=== PATIENT | female | born 1955 | race Caucasian/White ===

== ENCOUNTER → 2018-07-29 14:04 | Outpatient (CLI) | payer OTHER, MEDICAID, SELFPAY ==
--- NOTE | 2018-07-29 | DI.MRI.S_ITS ---
PROCEDURE: MR CERVICAL SPINE WO/W CON INDICATIONS: Radiculopathy, cervicothoracic region TECHNIQUE: Noncontrast sagittal T1 spin echo and T2 fast spin echo, sagittal STIR, foraminal oblique sagittal T2 fast spin echo, axial gradient echo or T2 fast spin echo through the cervical spine. After the administration of contrast, axial and sagittal T1 spin echo with fat saturation through the cervical spine. COMPARISON: None. FINDINGS: Image quality: Excellent. Alignment and curvature: Reversal of the normal cervical lordosis. Grade 1 retrolisthesis of C5 on C6. Marrow: Mild degenerative spurring and endplate degenerative signal change. No suspicious marrow enhancement. Spinal cord: Visualized spinal cord has normal size and signal. No cerebellar tonsillar herniation. No abnormal intramedullary enhancement. Paraspinous soft tissues: No paravertebral masses or suspicious enhancement. C2-3: Normal appearance. C3-4: Normal appearance. C4-5: Bilateral uncovertebral arthropathy and posterior intervening disc osteophyte complex, and mild bilateral facet disease. No definite canal stenosis. Minimal bilateral foraminal narrowing. C5-6: Bilateral uncovertebral arthropathy and posterior intervening disc osteophyte complex, and bilateral facet arthropathy. Mild to moderate canal narrowing with effacement of the anterior and posterior thecal sac. Severe bilateral foraminal narrowing. C6-7: Bilateral uncovertebral arthropathy and posterior intervening disc osteophyte complex, and bilateral facet arthropathy. Mild canal narrowing. Moderate right foraminal stenosis. Mild left foraminal narrowing C7-T1: Normal appearance. IMPRESSION: Multilevel cervical degeneration most pronounced at C5-C6 and C6-C7. Severe bilateral C5-C6 foraminal stenoses. Moderate right C6-C7 foraminal narrowing. Reversal of the normal cervical lordosis. No abnormal enhancement. Dictated by: Dieudonne Pichardo M.D. on 07/29/2018 at 16:17 Approved by: Dieudonne Pichardo M.D. on 07/29/2018 at 16:26
--- NOTE | 2018-07-29 | DI.MRI.S_ITS ---
PROCEDURE: MR THORACIC SPINE WO/W CON INDICATIONS: Radiculopathy, cervicothoracic region TECHNIQUE: Noncontrast sagittal T1 spin echo and T2 fast spin echo, sagittal STIR, axial T1 and T2 fast spin echo through the thoracic spine. After the administration of contrast, axial and sagittal T1 spin echo with fat saturation through the thoracic spine. COMPARISON: None. FINDINGS: Image quality: Excellent. Alignment and curvature: There is normal bony alignment. Marrow: Marrow is of normal overall signal. A few scattered incidental T1/T2 bright vertebral body hemangiomas. No acute vertebral body compression fractures. Spinal cord: Visualized spinal cord is of normal signal and size, without abnormal enhancement. Paraspinous soft tissues: No paravertebral masses or abnormal enhancement. Miscellaneous: Central canal and foramina appear widely patent at all scanned levels. IMPRESSION: No canal or foraminal stenosis. No abnormal enhancement. Dictated by: Dieudonne Pichardo M.D. on 07/29/2018 at 16:26 Approved by: Dieudonne Pichardo M.D. on 07/29/2018 at 16:43
== END ==
PROVIDERS: PCP Family Medicine; Referring Provider Chiropractor; Visit Provider Physician Assistant
DX: M50.123 Cervical disc disorder at C6-C7 level with radiculopathy (principal); M48.02 Spinal stenosis, cervical region
CPT/HCPCS: 72156; 72157; A9579

== ENCOUNTER → 2019-06-15 12:58 | Outpatient (CLI) | payer OTHER, MEDICAID, SELFPAY ==
--- NOTE | 2019-06-15 | DI.RAD.S_ITS ---
PROCEDURE: FL BARIUM SWALLOW W SPEECH INDICATIONS: Other dysphagia TECHNIQUE: Examination was conducted in conjunction with speech pathology per standard protocol. In the lateral projection, filming was performed of the patient swallowing. AP projection filming may also be performed with patient swallowing. COMPARISON: [facility], MR, MR CERVICAL SPINE WO/W CON, 07/29/2018, 14:41. FINDINGS: Function: The oral preparatory phase appears normal, with proper containment. The subsequent oral propulsive phase, pharyngeal phase, and esophageal phase of swallowing also appear normal with all proffered substances. No laryngotracheal penetration or aspiration. No pathologic vallecular pooling. Morphology: No cricopharyngeal bar is identified. No cervical esophageal webs. No Zenker's diverticulum. No strictures. IMPRESSION: No laryngeal penetration or aspiration. Please see speech pathologist's report for detail. Dictated by: Layla Knutson M.D. on 06/15/2019 at 18:12 Approved by: Layla Knutsno M.D. on 06/15/2019 at 18:13
--- NOTE | 2019-06-15 13:30 | ST.SWALLOW ---
Visit Care Team Role Provider Type Guero Hernandez MD Family Provider Non-Staff Primary Care Provider Specialty: Family Practice Address: 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 Rivers, ENT Reason for Referral Globus Setting Setting Outpatient Care Patient Information Identification Type Name Patient History Patient complains of chronic globus sensation which used to go away after a period of time, but now persists at all times. She endorses some intermittent vocal hoarseness. Additionally, she reports she has been unable to swallow on a few occasions, but attributes this to anxiety. Subjective Observations Patient alert, oriented and cooperative during the exam. Patient Positioning Position View Lateral Imaging Lateral View Textures Administered Trials Presented Thin Liquid via Spoon,Thin Liquid via Cup,[place] Liquid via Spoon,[place] Liquid via Cup,Honey Liquid via Spoon, Dysphagia Blenderized Textures ,Regular Textures Oral Phase Source: MBSIMP (TM) (C) Bolus Specific Scoring Grid Lip Closure No Impairment (WNL) Tongue Control During Bolus Hold No Impairment (WNL) Bolus Prep/Mastication No Impairment (WNL) Bolus Transport/Lingual Motion No Impairment (WNL) Oral Residue No Impairment (WNL) Pharyngeal Phase Source: MBSIMP (TM) (C) Bolus Specific Scoring Grid Delayed Initiation of Pharyngeal Swallow No Tongue Base Strength/Range of Motion No Impairment (WNL) Laryngeal Elevation No Impairment (WNL) Anterior Hyoid Movement No Impairment (WNL) Epiglottic Range of Motion Minimal Impairment Vallecular Residue Yes Clearance of Vallecular Residue WFL Laryngeal Vestibular Closure No Impairment (WNL) Pharyngeal Stripping Wave No Impairment (WNL) Pharyngeal Contraction No Impairment (WNL) Posterior Pharyngeal Wall Residue Yes Clearance of Posterior Pharyngeal Wall WFL Residue Upper Esophageal Sphincter Opening No Impairment (WNL) Residue in the Pyriform Sinuses Yes Clearance of Residue in the Pyriform WFL Sinuses Additional Pharyngeal Phase Observations Observed trace increasing to a collection of pharyngeal residue in the vallecula and pyriform sinuses as well as on the areypiglottic folds during consecutive cups sips which cleared with additional swallows. Hyolaryngeal elevation and excursion were within normal limits and laryngeal vestibular closure was complete with no penetration or aspiration observed during the study. A/P View Clinical Impressions Findings Functional swallow with no significant impairments observed. Recommend small bites/sips with additional swallows to clear residue. No reflux observed on this limited exam; however, patient 's symptoms may be consistent with laryngopharyngeal reflux. Follow-up with ENT is recommended. Patient Appropriate for Therapy No Recommendations Diet Liquids Order Thin Diet Order Regular Medication Recommendation As Tolerated Aspiration Precautions Recommended Precautions Upright at 90 Degrees,Small Bites/Sips,Double Swallow Treatment Plan Recommended Referrals ENT Consult Placement Recommendation After Discharge Home
== END ==
PROVIDERS: Family Provider Family Medicine; PCP Family Medicine; Visit Provider Otolaryngology
DX: R13.19 Other dysphagia (principal); R49.0 Dysphonia
CPT/HCPCS: 74230; 92611

== ENCOUNTER → 2020-01-26 11:32 | Outpatient (CLI) | payer OTHER, MEDICAID, SELFPAY ==
--- NOTE | 2020-01-26 | DI.MRI.S_ITS ---
PROCEDURE: MR CERVICAL SPINE WO CON INDICATIONS: Spinal stenosis, cervical region TECHNIQUE: Noncontrast sagittal T1 spin echo and T2 fast spin echo, sagittal STIR, foraminal oblique sagittal T2 fast spin echo, and axial gradient echo or T2 fast spin echo through the cervical spine. COMPARISON: [facility], MR, MR CERVICAL SPINE WO/W CON, 07/29/2018, 14:41. [facility], MR, C-SPINE WITHOUT CONTRAST, 08/25/2009, 9:16. FINDINGS: Image quality: Excellent. Alignment and Curvature: Trace retrolisthesis of C5 on C6, C6 on C7, trace anterolisthesis of C7 on T1, T1-T2, T2 on T3. Areas increased T1 and T2 signal within the T4 vertebral body suggestive of hemangioma. Bone Marrow: Marrow demonstrates normal overall signal. Spinal Cord: Visualized spinal cord has normal size and signal. No cerebellar tonsillar herniation. Paraspinous Soft Tissues: No paravertebral masses. Prevertebral soft tissues are normal in thickness. Discs: Moderate to severe desiccation is present throughout the cervical spine most severe at C5-6 and C6-7. C2-C3: No disc bulge, spinal stenosis or foraminal narrowing. No interval change. C3-C4: No disc bulge, spinal stenosis or foraminal narrowing. No interval change. C4-C5: Mild disc bulge without spinal stenosis. Minimal bilateral foraminal narrowing. Uncovertebral hypertrophy is present. No interval change. C5-C6: Mild disc bulge with superimposed posterior central protrusion protrusion. Moderate to severe spinal stenosis, unchanged. Moderate to severe bilateral, right greater than left foraminal narrowing with uncovertebral hypertrophy. No interval change. C6-C7: Mild disc bulge with moderate spinal stenosis. Mild/moderate bilateral foraminal narrowing, right greater than left with uncovertebral hypertrophy. C7-T1: Minimal disc bulge without spinal stenosis or foraminal narrowing. IMPRESSION: 1. Multiple disc bulges, spinal stenosis and foraminal narrowing. Overall, appearance is similar compared to prior exam. 2. Multilevel foraminal narrowing most prominent at C5-6 secondary to uncovertebral hypertrophy. Dictated by: Maribel Diego M.D. on 01/26/2020 at 13:47 Approved by: Maribel Diego M.D. on 01/26/2020 at 13:56
== END ==
PROVIDERS: Family Provider Family Medicine; PCP Family Medicine; Referring Provider Neuromusculoskeletal Medicine & OMM; Visit Provider Neuromusculoskeletal Medicine & OMM
DX: M48.02 Spinal stenosis, cervical region (principal); M50.221 Other cervical disc displacement at C4-C5 level
CPT/HCPCS: 72141

== ENCOUNTER → 2020-03-07 10:47 | Outpatient (CLI) | payer OTHER, MEDICAID, SELFPAY ==
--- NOTE | 2020-03-07 | DI.US.S_ITS ---
PROCEDURE: US PELVIC COMPLETE INDICATIONS: POSTMENOPAUSAL BLEEDING TECHNIQUE: Real-time scanning was performed of the pelvic organs, with image documentation. Additional endovaginal scanning was necessary due to incomplete visualization of the adnexal and endometrial structures by transabdominal scanning. COMPARISON: None. FINDINGS: Transabdominal scanning: Limited scanning through the kidneys shows no hydronephrosis. No pathologic free abdominal or pelvic fluid. Endovaginal scanning: Uterus: Uterus is normal in size at 6.8 x 2.3 x 4.0 cm. The endometrium measures 3.0 mm in combined thickness. Ovaries: Right ovary measures 2.3 x 2.0 x 1.2 cm and the left ovary measures 3.0 x 0.9 x 2 cm. Subcentimeter simple right ovarian cyst. IMPRESSION: No source for postmenopausal bleeding identified. Dictated by: Leonel Davis [facility] Interpreted: Carrie Espinoza MD on 03/07/2020 at 12:42 Approved by: Carrie Espinoza M.D. on 03/07/2020 at 14:16
== END ==
PROVIDERS: Family Provider Family Medicine; PCP Family Medicine; Referring Provider Family Medicine; Visit Provider Family Medicine
DX: N95.0 Postmenopausal bleeding (principal); N83.291 Other ovarian cyst, right side
CPT/HCPCS: 76830; 76856

== ENCOUNTER → 2021-01-09 10:59 | Outpatient (CLI) | payer OTHER, MEDICAID, SELFPAY | PROVIDERS: Family Provider Family Medicine; PCP Family Medicine; Referring Provider Family Medicine; Visit Provider Family Medicine | DX: N95.0 Postmenopausal bleeding (principal); Z53.8 Procedure and treatment not carried out for other reasons ==

== ENCOUNTER → 2021-10-31 09:24 | Outpatient (CLI) | payer OTHER, MEDICAID, SELFPAY ==
[2021-11-02 11:25] LABS: Candida species Negative (Negative); Gardnerella vaginalis Positive (Negative); Trichomoas vaginalis Negative (Negative)
== END ==
PROVIDERS: Family Provider Family Medicine; PCP Family Medicine; Visit Provider Physician Assistant
DX: N89.8 Other specified noninflammatory disorders of vagina (principal); R30.0 Dysuria
CPT/HCPCS: 81002; 87077; 87086; 87147; 87480; 87510; 87660

== ENCOUNTER 2023-10-28 11:15 | Outpatient (RCR) | payer MEDICARE, SELFPAY ==
--- NOTE | 2023-08-05 17:00 | PT.OIE ---
Current Diagnoses Other specified disorders of muscle (08/05/23) Cystocele, unspecified (08/05/23) Pelvic muscle wasting (08/05/23) Postmenopausal atrophic vaginitis (08/05/23) Visit Care Team Role Provider Type Colin Barroso PA-C Attending Provider Non-Staff Family Provider Primary Care Provider Referring Provider Specialty: Medical Address: [address] [place] [address], [id number] Email: Physical Therapy Initial Evaluation PT-OP-A Visit Information Start: 08/05/23 08:11 Freq: Status: Active Protocol: Document 08/05/23 11:15 AMH (Rec: 08/05/23 11:41 AMH [id number]) Out-Patient Physical Therapy Visit Information Visit Information Visit Type Initial Evaluation Visit Start Time 11:18 Visit Stop Time 12:00 Total Visit Minutes 42 Visit Number 1 Evaluation Information Evaluation Date 08/05/23 PT-OP-B Current Condition Start: 08/05/23 08:11 Freq: Status: Active Protocol: Document 08/05/23 11:15 AMH (Rec: 08/05/23 11:41 AMH [id number]) Current Condition History of Current Condition Onset Date a year at least Current Complaints unable to have intercourse or sit on hard surface History of Current Condition She feels as if she is getting a UTI after intercourse or after sitting it takes a few hours and she will start to feel irritation at the surface. She has been using estrodial on the surface to see if it helps off and on for the last year. She is also taking Ellura and this seems to be helping with avoiding UTI's. She describes her tissue being raw with intercourse, but 12 hours later she feels that she is getting a UTI. She in the last couple of weeks she has noted that she has more bowel urgency and is almost not making it to the bathroom. Only a couple of times a month will she note leakage when she sneezes. She had cervical Disc 4-5 removed and replaced November 2021 she has been in a lot of pain since her surgery. She hasn't been able to do any walking. Treatment Goals Patient/Caregiver Goals Treatment goals include improving strength of the pelvic floor for improved support of the pelvic organs and to eliminate pelvic pain following sitting and after intercourse. PT-OP-F Manual Assessment Start: 08/05/23 08:11 Freq: Status: Active Protocol: Document 08/05/23 11:15 AMH (Rec: 08/06/23 08:42 AMH [id number]) Manual Assessments Soft Tissue Assessment Soft Tissue Mobility Assessment fascial tightness around the transverse colon and diaphraghm PT-OP-I Pelvic Floor Start: 08/05/23 08:11 Freq: Status: Active Protocol: Document 08/05/23 11:15 AMH (Rec: 08/06/23 08:41 AMH [id number]) Pelvic Floor Assessment Urine Pelvic Floor Surgery No Urinary Symptoms Urge Sensation,Prolapse, Hesitancy,Pain Other Urinary Symptoms pelvic pain with description of raw tissue after intercourse and after sitting for long duration, hx of UTI's and the feeling that she is getting a UTI after intercourse Leakage Size Small Leakage Cause Cough,Sneeze Leaks Per Day 2-3 per month Nocturia 3 Pelvic Clock Pelvic Clock 12-3 Atrophy Pelvic Clock 3-6 Atrophy Pelvic Clock 6-9 Atrophy Pelvic Clock 9-12 Atrophy Pelvic Clock Other swelling noted around the urethra Prolapse Cystocele Grade 2 Contraction Ability Voluntary Contraction Weak Voluntary Relaxation Weak Manual Muscle Testing Left 2 Manual Muscle Testing Right 1 Manual Muscle Testing Anterior 1 Manual Muscle Testing Posterior 2 Muscle Endurance (Seconds) 2 PT-OP-M Strength Start: 08/05/23 08:11 Freq: Status: Active Protocol: Document 08/05/23 11:15 AMH (Rec: 08/06/23 08:41 AMH [id number]) Trunk Strength Trunk Manual Muscle Testing Testing Position Supine Flexion 2+ Poor+ Core Stabilization poor facilitation of the transverse abdominal muscles, pt tends to bulge the lower belly out with exhale PT-OP-Q Treatments Start: 08/05/23 08:11 Freq: Status: Active Protocol: Document 08/05/23 11:15 AMH (Rec: 08/05/23 17:50 AMH [id number]) Therapeutic Exercises Supine Exercises supine ball squeeze with pelvic floor contraction Reps/Minutes hold 5 min x 10 reps PT-OP-T Assessment and Plan Start: 08/05/23 08:11 Freq: Status: Active Protocol: Document 08/05/23 11:15 AMH (Rec: 08/06/23 08:11 AMH [id number]) Physical Therapy Assessment Rehab Potential Rehabilitation Potential Excellent Evaluation Complexity Number of Personal Factors/Comorbidities 0 Number of Body Systems Impaired 1-2 Clinical Presentation at Evaluation Stable Impairments Impairments Activity Tolerance,Functional Activities,Pain,Posture,Soft Tissue Mobility,Strength,Tone Other Impairments atrophic vaginitis and pain/ swelling following intercourse or sitting for too long, pt notes she has the feeling that she is getting a UTI after intercourse Goals 3 Impairment Poor endurance of the pelvic floor muscles with Dean only being able to sustain a pelvic floor contraction for 1 -2 seconds in supine Short Term Goal (STG) Dean is able to sustain a pelvic floor contraction in supine x 10 seconds STG Duration 5 weeks [employer] Goal (LTG) Dean is able to sustain a pelvic floor contraction in standing x 5 seconds LTG Duration 12 weeks 2 Impairment Pelvic floor weakness and atrophic tissue with MMT of 1/ 5 for the anterior and right lateral wall and 2/5 MMT for the posterior and left lateral wall Short Term Goal (STG) Dean is educated in pelvic floor strengthening and is given a home program to work on strengthening. STG Duration 4 weeks Skilled Nursing Goal (LTG) Dean presents with overall improvements in pelvic floor strength by one muscle grade or better for improved pelvic organ support LTG Duration 12 weeks 1 Impairment Pelvic pain and a feeling of raw tissue and swelling along with the feeling dean has a UTI following sitting for too long and after intercourse Short Term Goal (STG) Dean is educated on exercises and positional modifications she can make to decrease pelvic floor irritation STG Duration 4 weeks [employer] Goal (LTG) Dean reports a overall reduction in pelvic pain and no longer describes a feeling of raw tissue following intercourse and sitting for long duration LTG Duration 12 weeks Assessment Summary Assessment Dean is a 67 year old female who presents to PT today with atrophic vaginitis and new onset of pelvic pain type symptoms following intercourse or after sitting for too long. Dean notes she will experience a delayed onset of what feels like she is getting a UTI after intercourse or sitting and she describes the feeling of raw tissues She has been using estrodial off and on in the past year. Dean also reports a newer onset of bowel urgency and feeling as if she is not going to make it to the bathroom in time for bowel movements. Dean describes a small amount of urinary incontinence that occurs approx 2-3 times per month. She presents with nocturia and wakes approx 3 times per night to void. Dean has a past medical history of Cervical spine disc bulges and she underwent surgical repair last year. She reports her symptoms are much worse in her neck following surgery and this year has been a really hard year for her recovery sandoval. She has been in so much pain that she has not been able to enjoy her usual exercise activities and even walking increases her cervical pain. With exam today her pelvic floor tissue is atrophic and thinning, there is a grade 1-2 bladder prolapse palpated and some swelling around the urethra. Dean has poor pelvic floor strength with MMT of 1/5 for the anterior and right lateral wall and 2/5 MMT for left and posterior allen. She lacks the ability to sustain a pelvic floor contration for more than a few seconds. With abdominal testing she has poor ability to engage her transverse abdominals and there is tightness in the obliques and diaphragm. We talked today about how her inability to walk or exercise in this past year after her cervical surgery has most likely contributed to atrophy in her pelvis and core. She was advised to try water walking in the pool to decrease weight bearing and see if this is tolerable for her neck. I did start her with a adduction assist pelvic floor exercise and she tolerated this well. Dean is a good candidate for pelvic floor physical therapy and EMG biofeedback to assist with pelvic floor strengthening and endurance training. Physical Therapy Plan Frequency and Duration Frequency of Treatment 1x/Week Duration of treatment (weeks) 12 Plan of Care Start Date 08/05/23 Plan of Care End Date 10/28/23 Therapeutic Interventions Therapeutic Interventions Home Exercise Program, Neuromuscular Re-education, Patient/Caregiver Education, Self-Care/Home Management, Therapeutic Exercises Modalities Biofeedback Next Visit Focus/Plan Next Note Type Treatment Note Next Visit Plan Begin EMG biofeedback next visit for pelvic floor strengthening and endurance training.
--- NOTE | 2023-08-13 13:07 | PT.OTN ---
Current Diagnoses Other specified disorders of muscle (08/13/23) Cystocele, unspecified (08/13/23) Pelvic muscle wasting (08/13/23) Postmenopausal atrophic vaginitis (08/13/23) Physical Therapy Treatment Note PT-OP-A Visit Information Start: 08/05/23 08:11 Freq: Status: Active Protocol: Document 08/13/23 11:15 [facility] (Rec: 08/13/23 12:03 [facility] [id number]) Out-Patient Physical Therapy Visit Information Visit Information Visit Type Treatment Note Visit Start Time 11:16 Visit Stop Time 12:00 Total Visit Minutes 44 Visit Number 2 PT-OP-B Current Condition Start: 08/05/23 08:11 Freq: Status: Active Protocol: Document 08/05/23 11:15 [facility] (Rec: 08/05/23 11:41 [facility] [id number]) Current Condition History of Current Condition Onset Date a year at least Current Complaints unable to have intercourse or sit on hard surface History of Current Condition She feels as if she is getting a UTI after intercourse or after sitting it takes a few hours and she will start to feel iritation at the surface. She has been using estrodial on the surface to see if it helps off and on for the last year. She is also taking Ellura and this seems to be helping with avoiding UTI's. She describes her tissue being raw with intercourse, but 12 hours later she feels that she is getting a UTI. SHe in the last couple of weeks she has noted that she has more bowel urgency and is almost not making it to the bathroom. Only a couple of times a month will she note leakage when she sneezes. She had cervical Disc 4-5 removed and replaced November 2021 she has been in a lot of pain since her surgery. She hasn't been able to do any walking. Treatment Goals Patient/Caregiver Goals Treatment goals include improving strength of the pelvic floor for improved support of the pelvic organs and to eliminate pelvic pain following sitting and after intercourse. PT-OP-C Subjective Start: 08/05/23 08:11 Freq: Status: Active Protocol: Document 08/13/23 11:15 [facility] (Rec: 08/13/23 12:03 [facility] [id number]) OP-PT Subjective Patient Comments Patient Comments pt has a ball to use at home, she noticed a slight feeling of needing to void with her exercises but this has improved throughout the week PT-OP-F Manual Assessment Start: 08/05/23 08:11 Freq: Status: Active Protocol: Document 08/05/23 11:15 [facility] (Rec: 08/06/23 08:42 [facility] [id number]) Manual Assessments Soft Tissue Assessment Soft Tissue Mobility Assessment fascial tightness around the transverse colon and diaphraghm PT-OP-I Pelvic Floor Start: 08/05/23 08:11 Freq: Status: Active Protocol: Document 08/05/23 11:15 [facility] (Rec: 08/06/23 08:41 [facility] [id number]) Pelvic Floor Assessment Urine Pelvic Floor Surgery No Urinary Symptoms Urge Sensation,Prolapse, Hesitancy,Pain Other Urinary Symptoms pelvic pain with description of raw tissue after intercourse and after sitting for long duration, hx of UTI's and the feeling that she is getting a UTI after intercourse Leakage Size Small Leakage Cause Cough,Sneeze Leaks Per Day 2-3 per month Nocturia 3 Pelvic Clock Pelvic Clock 12-3 Atrophy Pelvic Clock 3-6 Atrophy Pelvic Clock 6-9 Atrophy Pelvic Clock 9-12 Atrophy Pelvic Clock Other swelling noted around the urethra Prolapse Cystocele Grade 2 Contraction Ability Voluntary Contraction Weak Voluntary Relaxation Weak Manual Muscle Testing Left 2 Manual Muscle Testing Right 1 Manual Muscle Testing Anterior 1 Manual Muscle Testing Posterior 2 Muscle Endurance (Seconds) 2 PT-OP-M Strength Start: 08/05/23 08:11 Freq: Status: Active Protocol: Document 08/05/23 11:15 [facility] (Rec: 08/06/23 08:41 [facility] [id number]) Trunk Strength Trunk Manual Muscle Testing Testing Position Supine Flexion 2+ Poor+ Core Stabilization poor facilitation of the transverse abdominal muscles, pt tends to bulge the lower belly out with exhale PT-OP-Q Treatments Start: 08/05/23 08:11 Freq: Status: Active Protocol: Document 08/13/23 11:15 [facility] (Rec: 08/13/23 12:03 [facility] [id number]) Therapeutic Exercises Supine Exercises diaphragmatic breathing Reps/Minutes inhale x 4 counts and exhale x 6 counts x 10 breaths Comments worked on rig cage expansion and belly breath piriformis stretch Reps/Minutes 2 reps holding 30 sec each modified squat stretch Reps/Minutes 2 reps 30 sec each supine ball squeeze with pelvic floor contraction Comments average hold 13.3 and max of 59 PT-OP-T Assessment and Plan Start: 08/05/23 08:11 Freq: Status: Active Protocol: Document 08/13/23 11:15 [facility] (Rec: 08/13/23 13:02 [facility] [id number]) Physical Therapy Assessment Goals 3 Impairment Poor endurance of the pelvic floor muscles with Dean only being able to sustain a pelvic floor contraction for 1 -2 seconds in supine Short Term Goal (STG) Dean is able to sustain a pelvic floor contraction in supine x 10 seconds STG Duration 5 weeks Temporary Office Assistant Goal (LTG) Dean is able to sustain a pelvic floor contraction in standing x 5 seconds LTG Duration 12 weeks 2 Impairment Pelvic floor weakness and atrophic tissue with MMT of 1/ 5 for the anterior and right lateral wall and 2/5 MMT for the posterior and left lateral wall Short Term Goal (STG) Dean is educated in pelvic floor strengthening and is given a home program to work on strengthening. STG Duration 4 weeks Custodial Goal (LTG) Dean presents with overall improvements in pelvic floor strength by one muscle grade or better for improved pelvic organ support LTG Duration 12 weeks 1 Impairment Pelvic pain and a feeling of raw tissue and swelling along with the feeling dean has a UTI following sitting for too long and after intercourse Short Term Goal (STG) Dean is educated on exercises and positional modifications she can make to decrease pelvic floor irritation STG Duration 4 weeks Custodial Goal (LTG) Dean reports a overall reduction in pelvic pain and no longer describes a feeling of raw tissue following intercourse and sitting for long duration LTG Duration 12 weeks Assessment Summary Assessment Dean did well with diaphragmatic breathing and adding in hip stretches today to help relax the pelvic floor . I started her on EMG biofeedback and she tolerated this well. She tends to use her gluteals and has difficulty with pelvic floor recruitment without breath hold Physical Therapy Plan Frequency and Duration Frequency of Treatment 1x/Week Duration of treatment (weeks) 12 Plan of Care Start Date 08/05/23 Plan of Care End Date 10/28/23 Therapeutic Interventions Therapeutic Interventions Home Exercise Program, Neuromuscular Re-education, Patient/Caregiver Education, Self-Care/Home Management, Therapeutic Exercises Modalities Biofeedback Next Visit Focus/Plan Next Note Type Treatment Note Next Visit Plan continue EMG biofeedback work towards pelvic floor isloation and endurance training, review diaphragmatic breathing and stretches
--- NOTE | 2023-08-19 14:08 | PT.OTN ---
Current Diagnoses Other specified disorders of muscle (08/19/23) Cystocele, unspecified (08/19/23) Pelvic muscle wasting (08/19/23) Postmenopausal atrophic vaginitis (08/19/23) Physical Therapy Treatment Note PT-OP-A Visit Information Start: 08/05/23 08:11 Freq: Status: Active Protocol: Document 08/19/23 11:19 [facility] (Rec: 08/19/23 12:07 [facility] [id number]) Out-Patient Physical Therapy Visit Information Visit Information Visit Type Treatment Note Visit Start Time 11:19 Visit Stop Time 12:00 Total Visit Minutes 42 Visit Number 3 PT-OP-B Current Condition Start: 08/05/23 08:11 Freq: Status: Active Protocol: Document 08/05/23 11:15 [facility] (Rec: 08/05/23 11:41 [facility] [id number]) Current Condition History of Current Condition Onset Date a year at least Current Complaints unable to have intercourse or sit on hard surface History of Current Condition She feels as if she is getting a UTI after intercourse or after sitting it takes a few hours and she will start to feel iritation at the surface. She has been using estrodial on the surface to see if it helps off and on for the last year. She is also taking Ellura and this seems to be helping with avoiding UTI's. She describes her tissue being raw with intercourse, but 12 hours later she feels that she is getting a UTI. SHe in the last couple of weeks she has noted that she has more bowel urgency and is almost not making it to the bathroom. Only a couple of times a month will she note leakage when she sneezes. She had cervical Disc 4-5 removed and replaced November 2021 she has been in a lot of pain since her surgery. She hasn't been able to do any walking. Treatment Goals Patient/Caregiver Goals Treatment goals include improving strength of the pelvic floor for improved support of the pelvic organs and to eliminate pelvic pain following sitting and after intercourse. PT-OP-C Subjective Start: 08/05/23 08:11 Freq: Status: Active Protocol: Document 08/19/23 11:19 [facility] (Rec: 08/19/23 12:07 [facility] [id number]) OP-PT Subjective Patient Comments Patient Comments pt reports she has been working on her breathing and has been trying to exhale, she notes she did have some irritated tissue at the urethra last week but it does seem a little better now. PT-OP-F Manual Assessment Start: 08/05/23 08:11 Freq: Status: Active Protocol: Document 08/05/23 11:15 [facility] (Rec: 08/06/23 08:42 [facility] [id number]) Manual Assessments Soft Tissue Assessment Soft Tissue Mobility Assessment fascial tightness around the transverse colon and diaphraghm PT-OP-I Pelvic Floor Start: 08/05/23 08:11 Freq: Status: Active Protocol: Document 08/05/23 11:15 [facility] (Rec: 08/06/23 08:41 [facility] [id number]) Pelvic Floor Assessment Urine Pelvic Floor Surgery No Urinary Symptoms Urge Sensation,Prolapse, Hesitancy,Pain Other Urinary Symptoms pelvic pain with description of raw tissue after intercourse and after sitting for long duration, hx of UTI's and the feeling that she is getting a UTI after intercourse Leakage Size Small Leakage Cause Cough,Sneeze Leaks Per Day 2-3 per month Nocturia 3 Pelvic Clock Pelvic Clock 12-3 Atrophy Pelvic Clock 3-6 Atrophy Pelvic Clock 6-9 Atrophy Pelvic Clock 9-12 Atrophy Pelvic Clock Other swelling noted around the urethra Prolapse Cystocele Grade 2 Contraction Ability Voluntary Contraction Weak Voluntary Relaxation Weak Manual Muscle Testing Left 2 Manual Muscle Testing Right 1 Manual Muscle Testing Anterior 1 Manual Muscle Testing Posterior 2 Muscle Endurance (Seconds) 2 PT-OP-M Strength Start: 08/05/23 08:11 Freq: Status: Active Protocol: Document 08/05/23 11:15 [facility] (Rec: 08/06/23 08:41 [facility] [id number]) Trunk Strength Trunk Manual Muscle Testing Testing Position Supine Flexion 2+ Poor+ Core Stabilization poor facilitation of the transverse abdominal muscles, pt tends to bulge the lower belly out with exhale PT-OP-Q Treatments Start: 08/05/23 08:11 Freq: Status: Active Protocol: Document 08/19/23 11:19 [facility] (Rec: 08/19/23 12:07 [facility] [id number]) Therapeutic Exercises Supine Exercises pelvic floor isolations with emg biofeedback Supine Exercise Name 12.3 average and max 28 Reps/Minutes hold x 5 sec and rest x 10 seconds Comments resting tone is at baseline diaphragmatic breathing Reps/Minutes inhale x 4 counts and exhale x 6 counts x 10 breaths Comments worked on rig cage expansion and belly breath piriformis stretch Reps/Minutes 2 reps holding 30 sec each modified squat stretch Reps/Minutes 2 reps 30 sec each supine ball squeeze with pelvic floor contraction Comments average hold 13.3 and max of 59 PT-OP-T Assessment and Plan Start: 08/05/23 08:11 Freq: Status: Active Protocol: Document 08/19/23 11:19 [facility] (Rec: 08/19/23 12:07 [facility] [id number]) Physical Therapy Assessment Rehab Potential Rehabilitation Potential Excellent Evaluation Complexity Number of Personal Factors/Comorbidities 0 Number of Body Systems Impaired 1-2 Clinical Presentation at Evaluation Stable Impairments Impairments Activity Tolerance,Functional Activities,Pain,Posture,Soft Tissue Mobility,Strength,Tone Other Impairments atrophic vaginitis and pain/ swelling following intercourse or sitting for too long, pt notes she has the feeling that she is getting a UTI after intercourse Goals 3 Impairment Poor endurance of the pelvic floor muscles with Dean only being able to sustain a pelvic floor contraction for 1 -2 seconds in supine Short Term Goal (STG) Dean is able to sustain a pelvic floor contraction in supine x 10 seconds STG Duration 5 weeks Care Home Goal (LTG) Dean is able to sustain a pelvic floor contraction in standing x 5 seconds LTG Duration 12 weeks 2 Impairment Pelvic floor weakness and atrophic tissue with MMT of 1/ 5 for the anterior and right lateral wall and 2/5 MMT for the posterior and left lateral wall Short Term Goal (STG) Dean is educated in pelvic floor strengthening and is given a home program to work on strengthening. STG Duration 4 weeks Technical Training Coordinator Goal (LTG) Dean presents with overall improvements in pelvic floor strength by one muscle grade or better for improved pelvic organ support LTG Duration 12 weeks 1 Impairment Pelvic pain and a feeling of raw tissue and swelling along with the feeling dean has a UTI following sitting for too long and after intercourse Short Term Goal (STG) Dean is educated on exercises and positional modifications she can make to decrease pelvic floor irritation STG Duration 4 weeks Technical Training Coordinator Goal (LTG) Dean reports a overall reduction in pelvic pain and no longer describes a feeling of raw tissue following intercourse and sitting for long duration LTG Duration 12 weeks Assessment Summary Assessment Dean did well with diaphragmatic breathing and adding in hip stretches today to help relax the pelvic floor . I started her on EMG biofeedback and she tolerated this well. She was able to relax to baseline on EMG biofeedback. She was also able to isolate her pelvic floor today and did just as well on her own as with the ball squeeze so I progressed her to isolations only. Physical Therapy Plan Frequency and Duration Frequency of Treatment 1x/Week Duration of treatment (weeks) 12 Plan of Care Start Date 08/05/23 Plan of Care End Date 10/28/23 Therapeutic Interventions Therapeutic Interventions Home Exercise Program, Neuromuscular Re-education, Patient/Caregiver Education, Self-Care/Home Management, Therapeutic Exercises Modalities Biofeedback Next Visit Focus/Plan Next Note Type Treatment Note Next Visit Plan begin hip ER exercises next visit and add in quick pelvic floor contractions, continue with stretches, breathing exercises and endurance training on EMG biofeedback
--- NOTE | 2023-08-26 12:35 | PT.OTN ---
Current Diagnoses Other specified disorders of muscle (08/26/23) Cystocele, unspecified (08/26/23) Pelvic muscle wasting (08/26/23) Postmenopausal atrophic vaginitis (08/26/23) Physical Therapy Treatment Note PT-OP-A Visit Information Start: 08/05/23 08:11 Freq: Status: Active Protocol: Document 08/26/23 11:27 [facility] (Rec: 08/26/23 11:55 [facility] [id number]) Out-Patient Physical Therapy Visit Information Visit Information Visit Type Treatment Note Visit Start Time 11:20 Visit Stop Time 12:00 Total Visit Minutes 40 Visit Number 4 PT-OP-B Current Condition Start: 08/05/23 08:11 Freq: Status: Active Protocol: Document 08/05/23 11:15 [facility] (Rec: 08/05/23 11:41 [facility] [id number]) Current Condition History of Current Condition Onset Date a year at least Current Complaints unable to have intercourse or sit on hard surface History of Current Condition She feels as if she is getting a UTI after intercourse or after sitting it takes a few hours and she will start to feel iritation at the surface. She has been using estrodial on the surface to see if it helps off and on for the last year. She is also taking Ellura and this seems to be helping with avoiding UTI's. She describes her tissue being raw with intercourse, but 12 hours later she feels that she is getting a UTI. SHe in the last couple of weeks she has noted that she has more bowel urgency and is almost not making it to the bathroom. Only a couple of times a month will she note leakage when she sneezes. She had cervical Disc 4-5 removed and replaced November 2021 she has been in a lot of pain since her surgery. She hasn't been able to do any walking. Treatment Goals Patient/Caregiver Goals Treatment goals include improving strength of the pelvic floor for improved support of the pelvic organs and to eliminate pelvic pain following sitting and after intercourse. PT-OP-C Subjective Start: 08/05/23 08:11 Freq: Status: Active Protocol: Document 08/26/23 11:27 [facility] (Rec: 08/26/23 11:55 [facility] [id number]) OP-PT Subjective Patient Comments Patient Comments pt notes she is using the estrogen cream every night and is using coconut oil. She is not noting the tingling tenderness as much PT-OP-F Manual Assessment Start: 08/05/23 08:11 Freq: Status: Active Protocol: Document 08/05/23 11:15 [facility] (Rec: 08/06/23 08:42 [facility] [id number]) Manual Assessments Soft Tissue Assessment Soft Tissue Mobility Assessment fascial tightness around the transverse colon and diaphraghm PT-OP-I Pelvic Floor Start: 08/05/23 08:11 Freq: Status: Active Protocol: Document 08/05/23 11:15 [facility] (Rec: 08/06/23 08:41 [facility] [id number]) Pelvic Floor Assessment Urine Pelvic Floor Surgery No Urinary Symptoms Urge Sensation,Prolapse, Hesitancy,Pain Other Urinary Symptoms pelvic pain with description of raw tissue after intercourse and after sitting for long duration, hx of UTI's and the feeling that she is getting a UTI after intercourse Leakage Size Small Leakage Cause Cough,Sneeze Leaks Per Day 2-3 per month Nocturia 3 Pelvic Clock Pelvic Clock 12-3 Atrophy Pelvic Clock 3-6 Atrophy Pelvic Clock 6-9 Atrophy Pelvic Clock 9-12 Atrophy Pelvic Clock Other swelling noted around the urethra Prolapse Cystocele Grade 2 Contraction Ability Voluntary Contraction Weak Voluntary Relaxation Weak Manual Muscle Testing Left 2 Manual Muscle Testing Right 1 Manual Muscle Testing Anterior 1 Manual Muscle Testing Posterior 2 Muscle Endurance (Seconds) 2 PT-OP-M Strength Start: 08/05/23 08:11 Freq: Status: Active Protocol: Document 08/05/23 11:15 [facility] (Rec: 08/06/23 08:41 [facility] [id number]) Trunk Strength Trunk Manual Muscle Testing Testing Position Supine Flexion 2+ Poor+ Core Stabilization poor facilitation of the transverse abdominal muscles, pt tends to bulge the lower belly out with exhale PT-OP-Q Treatments Start: 08/05/23 08:11 Freq: Status: Active Protocol: Document 08/26/23 11:27 [facility] (Rec: 08/26/23 11:55 [facility] [id number]) Therapeutic Exercises Supine Exercises pelvic floor isolations with emg biofeedback Reps/Minutes 10 sec on 10 sec off average 11.5 and max of 20.2 Comments able to relax to baseline diaphragmatic breathing Reps/Minutes inhale x 4 counts and exhale x 6 counts x 10 breaths Comments worked on rig cage expansion and belly breath Sidelying Exercises clam shells Reps/Minutes 2 x 10 reps Self-Care/Home Management Treatment Education Other Education pt was educated in dilator use and was given a size medium dilator with instructions on how to use it as well as using coconut oil for her vaginal tissues. PT-OP-T Assessment and Plan Start: 08/05/23 08:11 Freq: Status: Active Protocol: Document 08/26/23 11:27 [facility] (Rec: 08/26/23 11:55 [facility] [id number]) Physical Therapy Assessment Goals 3 Impairment Poor endurance of the pelvic floor muscles with Dean only being able to sustain a pelvic floor contraction for 1 -2 seconds in supine Short Term Goal (STG) Dean is able to sustain a pelvic floor contraction in supine x 10 seconds STG Duration 5 weeks Penitentiary Goal (LTG) Dean is able to sustain a pelvic floor contraction in standing x 5 seconds LTG Duration 12 weeks 2 Impairment Pelvic floor weakness and atrophic tissue with MMT of 1/ 5 for the anterior and right lateral wall and 2/5 MMT for the posterior and left lateral wall Short Term Goal (STG) Dean is educated in pelvic floor strengthening and is given a home program to work on strengthening. STG Duration 4 weeks Penitentiary Goal (LTG) Dean presents with overall improvements in pelvic floor strength by one muscle grade or better for improved pelvic organ support LTG Duration 12 weeks 1 Impairment Pelvic pain and a feeling of raw tissue and swelling along with the feeling dean has a UTI following sitting for too long and after intercourse Short Term Goal (STG) Dean is educated on exercises and positional modifications she can make to decrease pelvic floor irritation STG Duration 4 weeks [employer] Goal (LTG) Dean reports a overall reduction in pelvic pain and no longer describes a feeling of raw tissue following intercourse and sitting for long duration LTG Duration 12 weeks Assessment Summary Assessment Time was spent today on self care discussing the coconut oil and estrogen cream for Dean's tissue, she was also given a size medium dilator for home use as she would like to be able to be sexually active with her again. She is doing well relaxing the pelvic floor to baseline and endurance contractions are improved Physical Therapy Plan Frequency and Duration Frequency of Treatment 1x/Week Duration of treatment (weeks) 12 Plan of Care Start Date 08/05/23 Plan of Care End Date 10/28/23 Therapeutic Interventions Therapeutic Interventions Home Exercise Program, Neuromuscular Re-education, Patient/Caregiver Education, Self-Care/Home Management, Therapeutic Exercises Modalities Biofeedback Next Visit Focus/Plan Next Note Type Treatment Note Next Visit Plan review hip ER clam shells next visit and continue with pelvic floor endurance contractions as well as pelivc floor relaxation exercises
--- NOTE | 2023-10-16 13:59 | PT.OTN ---
Current Diagnoses Other specified disorders of muscle (10/16/23) Cystocele, unspecified (10/16/23) Pelvic muscle wasting (10/16/23) Postmenopausal atrophic vaginitis (10/16/23) Physical Therapy Treatment Note PT-OP-A Visit Information Start: 08/05/23 08:11 Freq: Status: Active Protocol: Document 10/16/23 11:21 [facility] (Rec: 10/16/23 12:03 [facility] [id number]) Out-Patient Physical Therapy Visit Information Visit Information Visit Type Treatment Note Visit Start Time 11:20 Visit Stop Time 12:00 Visit Number 5 PT-OP-B Current Condition Start: 08/05/23 08:11 Freq: Status: Active Protocol: Document 08/05/23 11:15 [facility] (Rec: 08/05/23 11:41 [facility] [id number]) Current Condition History of Current Condition Onset Date a year at least Current Complaints unable to have intercourse or sit on hard surface History of Current Condition She feels as if she is getting a UTI after intercourse or after sitting it takes a few hours and she will start to feel iritation at the surface. She has been using estrodial on the surface to see if it helps off and on for the last year. She is also taking Ellura and this seems to be helping with avoiding UTI's. She describes her tissue being raw with intercourse, but 12 hours later she feels that she is getting a UTI. SHe in the last couple of weeks she has noted that she has more bowel urgency and is almost not making it to the bathroom. Only a couple of times a month will she note leakage when she sneezes. She had cervical Disc 4-5 removed and replaced November 2021 she has been in a lot of pain since her surgery. She hasn't been able to do any walking. Treatment Goals Patient/Caregiver Goals Treatment goals include improving strength of the pelvic floor for improved support of the pelvic organs and to eliminate pelvic pain following sitting and after intercourse. PT-OP-C Subjective Start: 08/05/23 08:11 Freq: Status: Active Protocol: Document 10/16/23 11:21 [facility] (Rec: 10/16/23 12:03 [facility] [id number]) OP-PT Subjective Patient Comments Patient Comments pt had to cx a visit due to a bad headache and a fall and her headache is much better. She has been diagnosed with hyper parathyroid syndrome. She feels she has progressed with her execises. She still has irritation with intercourse. SHe is doing the estradial and coconut oil and her pelvic floor tissue feels better but still irritaton with intercourse. SHe has had no leakge and feels better with decreased urgency. She also hasn't been experiencing the sciatica on the left side. PT-OP-F Manual Assessment Start: 08/05/23 08:11 Freq: Status: Active Protocol: Document 08/05/23 11:15 [facility] (Rec: 08/06/23 08:42 [facility] [id number]) Manual Assessments Soft Tissue Assessment Soft Tissue Mobility Assessment fascial tightness around the transverse colon and diaphraghm PT-OP-I Pelvic Floor Start: 08/05/23 08:11 Freq: Status: Active Protocol: Document 08/05/23 11:15 [facility] (Rec: 08/06/23 08:41 [facility] [id number]) Pelvic Floor Assessment Urine Pelvic Floor Surgery No Urinary Symptoms Urge Sensation,Prolapse, Hesitancy,Pain Other Urinary Symptoms pelvic pain with description of raw tissue after intercourse and after sitting for long duration, hx of UTI's and the feeling that she is getting a UTI after intercourse Leakage Size Small Leakage Cause Cough,Sneeze Leaks Per Day 2-3 per month Nocturia 3 Pelvic Clock Pelvic Clock 12-3 Atrophy Pelvic Clock 3-6 Atrophy Pelvic Clock 6-9 Atrophy Pelvic Clock 9-12 Atrophy Pelvic Clock Other swelling noted around the urethra Prolapse Cystocele Grade 2 Contraction Ability Voluntary Contraction Weak Voluntary Relaxation Weak Manual Muscle Testing Left 2 Manual Muscle Testing Right 1 Manual Muscle Testing Anterior 1 Manual Muscle Testing Posterior 2 Muscle Endurance (Seconds) 2 PT-OP-M Strength Start: 08/05/23 08:11 Freq: Status: Active Protocol: Document 08/05/23 11:15 [facility] (Rec: 08/06/23 08:41 [facility] [id number]) Trunk Strength Trunk Manual Muscle Testing Testing Position Supine Flexion 2+ Poor+ Core Stabilization poor facilitation of the transverse abdominal muscles, pt tends to bulge the lower belly out with exhale PT-OP-Q Treatments Start: 08/05/23 08:11 Freq: Status: Active Protocol: Document 10/16/23 11:21 [facility] (Rec: 10/16/23 12:03 [facility] [id number]) Therapeutic Exercises Supine Exercises pelvic floor isolations with emg biofeedback Supine Exercise Name 11.9 and max of 19 Reps/Minutes 10 sec on 10 sec off average 11.5 and max of 20.2 piriformis stretch Supine Exercise Name pt is modifying this as pulling knee to chest wasd bothering her back Reps/Minutes 2 reps holding 30 sec each modified squat stretch Reps/Minutes 2 reps 30 sec each supine ball squeeze with pelvic floor contraction Comments average hold 13.3 and max of 59 Sidelying Exercises clam shells Reps/Minutes 2 x 10 reps Self-Care/Home Management Treatment Education Patient Education Home Exercise Program,Pain Management Other Education dilator use was reviewed and pt was educated on using ice following intercourse as she will start to get tissue irritation following. She has doretha pads at home she can freeze. PT-OP-T Assessment and Plan Start: 08/05/23 08:11 Freq: Status: Active Protocol: Document 10/16/23 11:21 [facility] (Rec: 10/16/23 12:03 [facility] [id number]) Physical Therapy Assessment Goals 2 Impairment Pelvic floor weakness and atrophic tissue with MMT of 1/ 5 for the anterior and right lateral wall and 2/5 MMT for the posterior and left lateral wall Short Term Goal (STG) Christy is educated in pelvic floor strengthening and is given a home program to work on strengthening. STG Duration 4 weeks Supervisor Joiners Goal (LTG) Christy presents with overall improvements in pelvic floor strength by one muscle grade or better for improved pelvic organ support LTG Duration 12 weeks 1 Impairment Pelvic pain and a feeling of raw tissue and swelling along with the feeling christy has a UTI following sitting for too long and after intercourse Short Term Goal (STG) Christy is educated on exercises and positional modifications she can make to decrease pelvic floor irritation STG Duration 4 weeks Supervisor Joiners Goal (LTG) Christy reports a overall reduction in pelvic pain and no longer describes a feeling of raw tissue following intercourse and sitting for long duration pt notes overall this is better with sitting LTG Duration 12 weeks Assessment Summary Assessment Christy has made progress with her pelvic floor and she is able to have intercourse without pain but has pain afterwards. I advised icing after intercourse and she will work on this to see if it helps her. She is no longer leaking and is not noting urgency Physical Therapy Plan Frequency and Duration Frequency of Treatment 1x/Week Duration of treatment (weeks) 12 Plan of Care Start Date 08/05/23 Plan of Care End Date 10/28/23 Next Visit Focus/Plan Next Note Type Treatment Note Next Visit Plan review all established ex next visit and see how pt does with icing after intercourse. This will be Christy's last PT visit
--- NOTE | 2023-10-28 12:02 | PT.OTN ---
Current Diagnoses Other specified disorders of muscle (10/28/23) Cystocele, unspecified (10/28/23) Pelvic muscle wasting (10/28/23) Postmenopausal atrophic vaginitis (10/28/23) Physical Therapy Treatment Note PT-OP-A Visit Information Start: 08/05/23 08:11 Freq: Status: Active Protocol: Document 10/28/23 11:18 [facility] (Rec: 10/28/23 12:02 [facility] [id number]) Out-Patient Physical Therapy Visit Information Visit Information Visit Type Treatment Note Visit Start Time 11:18 Visit Stop Time 12:00 Visit Number 6 PT-OP-B Current Condition Start: 08/05/23 08:11 Freq: Status: Active Protocol: Document 08/05/23 11:15 [facility] (Rec: 08/05/23 11:41 [facility] [id number]) Current Condition History of Current Condition Onset Date a year at least Current Complaints unable to have intercourse or sit on hard surface History of Current Condition She feels as if she is getting a UTI after intercourse or after sitting it takes a few hours and she will start to feel iritation at the surface. She has been using estrodial on the surface to see if it helps off and on for the last year. She is also taking Ellura and this seems to be helping with avoiding UTI's. She describes her tissue being raw with intercourse, but 12 hours later she feels that she is getting a UTI. SHe in the last couple of weeks she has noted that she has more bowel urgency and is almost not making it to the bathroom. Only a couple of times a month will she note leakage when she sneezes. She had cervical Disc 4-5 removed and replaced November 2021 she has been in a lot of pain since her surgery. She hasn't been able to do any walking. Treatment Goals Patient/Caregiver Goals Treatment goals include improving strength of the pelvic floor for improved support of the pelvic organs and to eliminate pelvic pain following sitting and after intercourse. PT-OP-C Subjective Start: 08/05/23 08:11 Freq: Status: Active Protocol: Document 10/28/23 11:18 [facility] (Rec: 10/28/23 12:02 [facility] [id number]) OP-PT Subjective Patient Comments Patient Comments Dean notes she hasn't been sleeping due to the parathyroid. She has elevated calcium in her blood that can dry out her tissue and she is wondering if that is causing some of her irritated tissue in her vaginal area PT-OP-F Manual Assessment Start: 08/05/23 08:11 Freq: Status: Active Protocol: Document 08/05/23 11:15 [facility] (Rec: 08/06/23 08:42 [facility] [id number]) Manual Assessments Soft Tissue Assessment Soft Tissue Mobility Assessment fascial tightness around the transverse colon and diaphraghm PT-OP-I Pelvic Floor Start: 08/05/23 08:11 Freq: Status: Active Protocol: Document 08/05/23 11:15 [facility] (Rec: 08/06/23 08:41 [facility] [id number]) Pelvic Floor Assessment Urine Pelvic Floor Surgery No Urinary Symptoms Urge Sensation,Prolapse, Hesitancy,Pain Other Urinary Symptoms pelvic pain with description of raw tissue after intercourse and after sitting for long duration, hx of UTI's and the feeling that she is getting a UTI after intercourse Leakage Size Small Leakage Cause Cough,Sneeze Leaks Per Day 2-3 per month Nocturia 3 Pelvic Clock Pelvic Clock 12-3 Atrophy Pelvic Clock 3-6 Atrophy Pelvic Clock 6-9 Atrophy Pelvic Clock 9-12 Atrophy Pelvic Clock Other swelling noted around the urethra Prolapse Cystocele Grade 2 Contraction Ability Voluntary Contraction Weak Voluntary Relaxation Weak Manual Muscle Testing Left 2 Manual Muscle Testing Right 1 Manual Muscle Testing Anterior 1 Manual Muscle Testing Posterior 2 Muscle Endurance (Seconds) 2 PT-OP-M Strength Start: 08/05/23 08:11 Freq: Status: Active Protocol: Document 08/05/23 11:15 [facility] (Rec: 08/06/23 08:41 [facility] [id number]) Trunk Strength Trunk Manual Muscle Testing Testing Position Supine Flexion 2+ Poor+ Core Stabilization poor facilitation of the transverse abdominal muscles, pt tends to bulge the lower belly out with exhale PT-OP-Q Treatments Start: 08/05/23 08:11 Freq: Status: Active Protocol: Document 10/28/23 11:18 [facility] (Rec: 10/28/23 12:02 [facility] [id number]) Therapeutic Exercises Supine Exercises pelvic floor quick contractions Reps/Minutes 2 sec on 2 sec off pelvic floor isolations with emg biofeedback Supine Exercise Name 11.1 and max of 23 Reps/Minutes 10 seconds on 10 seconds off piriformis stretch Supine Exercise Name pt is modifying this as pulling knee to chest wasd bothering her back Reps/Minutes 2 reps holding 30 sec each modified squat stretch Reps/Minutes 2 reps 30 sec each supine ball squeeze with pelvic floor contraction Comments average hold 13.3 and max of 59 Sidelying Exercises clam shells Reps/Minutes 2 x 10 reps Self-Care/Home Management Treatment Education Patient Education Home Exercise Program,Pain Management Other Education pt was given a size large dilator and ice following intercourse was reviewed. Her HEP was reviewed today. PT-OP-T Assessment and Plan Start: 08/05/23 08:11 Freq: Status: Active Protocol: Document 10/28/23 11:18 [facility] (Rec: 10/28/23 12:02 [facility] [id number]) Physical Therapy Assessment Goals 3 Impairment Poor endurance of the pelvic floor muscles with Dean only being able to sustain a pelvic floor contraction for 1 -2 seconds in supine Short Term Goal (STG) Dean is able to sustain a pelvic floor contraction in supine x 10 seconds GOAL MET STG Duration 5 weeks Snf Goal (LTG) Dean is able to sustain a pelvic floor contraction in standing x 5 seconds not yet met LTG Duration 12 weeks 2 Impairment Pelvic floor weakness and atrophic tissue with MMT of 1/ 5 for the anterior and right lateral wall and 2/5 MMT for the posterior and left lateral wall Short Term Goal (STG) Dean is educated in pelvic floor strengthening and is given a home program to work on strengthening. GOAL MET STG Duration 4 weeks Snf Goal (LTG) Dean presents with overall improvements in pelvic floor strength by one muscle grade or better for improved pelvic organ support Excellent progress LTG Duration 12 weeks 1 Impairment Pelvic pain and a feeling of raw tissue and swelling along with the feeling dean has a UTI following sitting for too long and after intercourse Short Term Goal (STG) Dean is educated on exercises and positional modifications she can make to decrease pelvic floor irritation GOAL MET STG Duration 4 weeks Documentation Specialist Goal (LTG) Dean reports a overall reduction in pelvic pain and no longer describes a feeling of raw tissue following intercourse and sitting for long duration pt notes overall she is not feeling the irritated tissue feeling with sitting. She does still feel irritation following intercourse LTG Duration 12 weeks Assessment Summary Assessment Dean has made really good overall progress with pelvic floor strengthening. She is independent with her home program at this time. 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 She reports overall decreased pelvic pain and irritation with sitting. She notes with intercourse she will still be uncomfortable following. She is hoping this surgery will help as she has dry tissue in all her mucus membranes. At this time Dean will be discharged from PT Physical Therapy Plan Discharge Physical Therapy Discharge Reasons Change in Medical Status Discharge Comments Dean will be undergoing surgery to remove the tumor on her parathyroid. She is feeling independent with her HEP and will be discharged from PT at this time
== END 2023-10-28 15:56 ==
LOC: PHYS 11:15
PROVIDERS: Family Provider Physician Assistant; PCP Physician Assistant; Referring Provider Physician Assistant; Visit Provider Physician Assistant
DX: N95.2 Postmenopausal atrophic vaginitis (principal); M62.89 Other specified disorders of muscle; N81.84 Pelvic muscle wasting; N81.10 Cystocele, unspecified
CPT/HCPCS: 97110; 97161; 97535

== ENCOUNTER → 2024-01-15 10:26 | Outpatient (CLI) | payer MEDICARE, SELFPAY ==
[2024-01-15 19:56] LABS: Add Manual Diff / Slide Review NO; Basophils Absolute Auto 0 /uL (0-100); Basophils Percent Auto 0.7 % (0-2); Eosinophils Absolute Auto 100 /uL (0-450); Eosinophils Percent Auto 1.6 % (2-4); Hematocrit 40.8 % (36-46); Hemoglobin 13.9 g/dL (12.0-16.0); Lymphocytes Absolute Auto 2100 /uL (1100-4500); Lymphocytes Percent Auto 38.9 % (25-40); Mean Corpuscular Hemoglobin 32.6 PG (26-34); Monocytes Absolute Auto 400 /uL (0-900); Monocytes Percent Auto 8.1 % (3-14); Neutrophils Absolute Auto 2800 /uL (1500-7000); Neutrophils Percent Auto 50.7 % (50-75); Platelet Count 238 X10^3/uL (150-400); Red Blood Cell Count 4.25 X10^6/uL (4.0-5.2); Red Cell Distribution Width 12.7 % (11.6-14.8); White Blood Cell Count 5.5 X10^3/uL (4.5-11.0)
[2024-01-15 20:26] LABS: Alanine Aminotransferase 27 IU/L (<35); Albumin 4.7 g/dL (3.5-5.0); Albumin Globulin Ratio 1.8 (1.0-2.8); Alkaline Phosphatase 102 U/L (38-126); Aspartate Aminotransferase 34 IU/L (14-36); BUN Creatinine Ratio 22.8 (6-22); Bilirubin Total 0.7 mg/dL (0.2-1.3); Blood Urea Nitrogen 18 mg/dL (7-17); C-Reactive Protein Quant < 0.5 mg/dL (<1.0); Carbon Dioxide 29 mmol/L (22-32); Chloride 105 mmol/L (98-107); Estimated Glomerular Filt Rate > 60 mL/min (>60); Globulin 2.6 g/dL (1.7-4.1); Glucose 103 mg/dL (80-110); HEMOLYSIS 17 (0-50); Potassium 4.4 mmol/L (3.4-5.1); Sodium 140 mmol/L (137-145); Total Protein 7.3 g/dL (6.3-8.2)
[2024-01-15 20:35] LABS: Erythrocyte Sedimentation Rate 5 MM/HR (0-20)
[2024-01-15 20:47] LABS: Rheumatoid Factor < 8.6 IU/mL (<12.0)
[2024-01-15 20:53] LABS: Thyroid Stimulating Hormone 1.52 uIU/mL (0.47-4.68)
[2024-01-15 20:55] LABS: Hep C Virus Ab w/Reflex Quant NEGATIVE s/c (NEGATIVE)
== END ==
PROVIDERS: Family Provider Physician Assistant; PCP Family Medicine; Visit Provider Family Medicine
DX: E21.3 Hyperparathyroidism, unspecified (principal); E83.52 Hypercalcemia; K59.00 Constipation, unspecified; F41.9 Anxiety disorder, unspecified; R68.2 Dry mouth, unspecified; H04.123 Dry eye syndrome of bilateral lacrimal glands; G62.9 Polyneuropathy, unspecified; K52.9 Noninfective gastroenteritis and colitis, unspecified
CPT/HCPCS: 80053; 82310; 83883; 83970; 84155; 84165; 84443; 85025; 85651; 86038; 86140; 86235; 86430; 86803

== ENCOUNTER → 2024-03-15 13:03 | Outpatient (CLI) | payer MEDICARE, OTHER, SELFPAY ==
[2024-03-15 19:49] LABS: Alanine Aminotransferase 26 IU/L (<35); Albumin 4.1 g/dL (3.5-5.0); Albumin Globulin Ratio 1.8 (1.0-2.8); Alkaline Phosphatase 108 U/L (38-126); Aspartate Aminotransferase 33 IU/L (14-36); BUN Creatinine Ratio 18.2 (6-22); Bilirubin Total 0.5 mg/dL (0.2-1.3); Blood Urea Nitrogen 12 mg/dL (7-17); Calcium 9.2 mg/dL (8.4-10.2); Carbon Dioxide 29 mmol/L (22-32); Chloride 105 mmol/L (98-107); Estimated Glomerular Filt Rate > 60 mL/min (>60); Globulin 2.3 g/dL (1.7-4.1); Glucose 103 mg/dL (80-110); HEMOLYSIS < 15 (0-50); Potassium 4.3 mmol/L (3.4-5.1); Sodium 139 mmol/L (137-145); Total Protein 6.4 g/dL (6.3-8.2)
== END ==
PROVIDERS: Family Provider Physician Assistant; PCP Family Medicine; Visit Provider Family Medicine
DX: E21.3 Hyperparathyroidism, unspecified (principal); E83.52 Hypercalcemia
CPT/HCPCS: 80053; 82310; 83970

== ENCOUNTER → 2024-03-25 11:36 | Outpatient (CLI) | payer MEDICARE, OTHER, SELFPAY ==
--- NOTE | 2024-03-25 11:38 | DI.MRI.S_ITS ---
PROCEDURE: MR CERVICAL SPINE WO CON INDICATIONS: paradoxical postural headache TECHNIQUE: Noncontrast sagittal T1 spin echo and T2 fast spin echo, sagittal STIR, foraminal oblique sagittal T2 fast spin echo, and axial gradient echo or T2 fast spin echo through the cervical spine. COMPARISON: [facility], MR, MR CERVICAL SPINE WITH/WITHOUT CONTRAST, 10/25/2021, 12:01. [facility], MR, MR CERVICAL SPINE WO CON, 01/26/2020, 11:57. [facility], MR, MR HEAD/BRAIN WO/W CON, 03/25/2024, 12:30. FINDINGS: Image quality: There is artifact associated with the metallic hardware. Mild motion artifact can be seen. Alignment and Curvature: There is straightening of the normal cervical lordosis. No focal AP alignment abnormality is seen. Bone Marrow: Marrow demonstrates normal overall signal. Spinal Cord: Visualized spinal cord has normal size and signal. No cerebellar tonsillar herniation. Paraspinous Soft Tissues: No paravertebral masses. Prevertebral soft tissues are normal in thickness. Anteriorly placed fixation devices can be seen at C5-C6 and C6-C7. C2-C3: Normal appearance. C3-C4: The disc height and disk signal are relatively well-preserved. A mild degree of generalized disc osteophyte complex is seen. Mild facet joint hypertrophy is seen. No significant neural foraminal or central canal narrowing can be seen. Stable from the prior study. C4-C5: Mild loss of disc height is seen. Loss of disc signal is seen. A mild degree of generalized disc osteophyte complex is seen. Mild facet joint hypertrophy is seen. There is moderate right-sided and [id number] left-sided neural foraminal narrowing. Minimal central canal narrowing is seen. When comparison is made with the prior images, these findings are similar. C5-C6: Postoperative change is seen at this level. Moderate generalized disc osteophyte complex is seen. Mild facet joint hypertrophy is seen. Moderate to severe bilateral neural foraminal narrowing can be seen. Mild central canal narrowing is seen. The degree of central canal narrowing has improved compared to the prior examination. C6-C7: Moderate disc osteophyte complex is seen, which is eccentric to the right. Mild facet joint hypertrophy is seen. There is moderate to severe right-sided and at least moderate left-sided neural foraminal narrowing. Mild central canal narrowing is seen. There is associated mass effect upon the ventral spinal cord. The degree of central canal narrowing is improved at this level compared to the preoperative 2021 MRI. C7-T1: No significant abnormality is seen. IMPRESSION: Since the prior MRI, there has been placement of fixation devices anteriorly at C5-C6 and C6-C7. The degrees of central canal narrowing at these levels has improved compared to the prior. Otherwise, stable degenerative changes compared to the prior images. Dictated by: Pankaj Rothman M.D. on 03/25/2024 at 12:17 Approved by: Pankaj Rothman M.D. on 03/25/2024 at 12:22
--- NOTE | 2024-03-25 11:38 | DI.MRI.S_ITS ---
PROCEDURE: MR HEAD/BRAIN WO/W CON INDICATIONS: pardoxical postural headache- BUTCHER worse with lying down TECHNIQUE: Noncontrast axial T1 spin echo, axial T2 fast spin echo, sagittal and axial FLAIR, coronal T2 fast spin echo, axial gradient echo, axial diffusion and ADC through the brain. After the administration of contrast, axial and coronal and sagittal T1 spin echo with fat saturation through the brain. COMPARISON: [facility], CT, CT HEAD WITHOUT CONTRAST, 10/09/2023, 16:16. FINDINGS: Image quality: Excellent. CSF spaces: Basal cisterns are patent. No extra-axial fluid collections. Ventricles are normal in size and shape. Brain: No midline shift. No intracranial bleeds or masses. No abnormal intracranial enhancement. There is cerebral volume loss for age. There is periventricular white matter chronic small vessel ischemic change. The brainstem appears normal. Diffusion-weighted images demonstrate no acute infarct. No chronic ischemic insults. Normal intravascular flow voids are present. Skull and face: Calvarial marrow is normal in signal. Orbits appear normal. Sinuses: Sinuses and mastoids appear clear. IMPRESSION: No cause for patient's symptoms is identified. No acute intracranial abnormalities or abnormal intracranial enhancement. Dictated by: Olvin Beavers M.D. on 03/25/2024 at 14:14 Approved by: Olvin Beavers M.D. on 03/25/2024 at 14:17
== END ==
PROVIDERS: Family Provider Physician Assistant; PCP Family Medicine; Referring Provider Family Medicine; Visit Provider Family Medicine
DX: H93.11 Tinnitus, right ear (principal); R51.9 Headache, unspecified; R42 Dizziness and giddiness; M47.812 Spondylosis without myelopathy or radiculopathy, cervical region; M48.02 Spinal stenosis, cervical region; M54.2 Cervicalgia; R11.0 Nausea; R29.898 Other symptoms and signs involving the musculoskeletal system; G89.29 Other chronic pain; Z98.1 Arthrodesis status
CPT/HCPCS: 70553; 72141; A9579

== ENCOUNTER → 2024-08-31 11:17 | Outpatient (CLI) | payer MEDICARE, OTHER, SELFPAY ==
[2024-08-31 14:42] LABS: Appearance Urine UA CLEAR; Bilirubin Urine UA NEGATIVE (NEGATIVE); Color Urine UA YELLOW; Glucose Urine UA NEGATIVE (Negative); Ketones Urine UA NEGATIVE (NEGATIVE); Leukocyte Esterase Urine UA NEGATIVE (NEGATIVE); Nitrite Urine UA NEGATIVE (Negative); Occult Blood Urine UA NEGATIVE (Negative); Protein Urine UA NEGATIVE (Negative); Specific Gravity Urine UA <=1.005 (1.000-1.035); Urobilinogen Urine UA 0.2 E.U./dL (0.2)
[2024-08-31 14:43] LABS: pH Urine UA 5.5 (4.5-8.0)
[2024-08-31 14:49] LABS: Bacteria Urine Occasional (0-1); Culture Indicated Urine Cult Not Indicated; RBC Urine 1-5/HPF (0-5/HPF); Squamous Epithelial Cell Urine 1-5 /HPF (0-5/HPF); Urine Volume 10mL (spun); WBC Urine 1-5/HPF (0-5/HPF)
[2024-08-31 15:29] LABS: Vitamin D 25 Hydroxy (D3) 79.1 ng/mL (30.0-100.0)
[2024-09-01 07:39] LABS: Calcium 8.9 mg/dL (8.7-10.3); Parathyroid Hormone, Intact 47 pg/mL (15-65)
== END ==
PROVIDERS: Family Provider Physician Assistant; PCP Family Medicine; Visit Provider Family Medicine
DX: E83.52 Hypercalcemia (principal); E21.3 Hyperparathyroidism, unspecified; M81.0 Age-related osteoporosis without current pathological fracture; R31.9 Hematuria, unspecified
CPT/HCPCS: 81001; 82306; 82310; 83970

== ENCOUNTER 2024-10-26 09:40 | Day surgery (SDC) | payer MEDICARE, OTHER, SELFPAY ==
--- NOTE | 2024-10-26 | PATH_ITS ---
[facility] Accession Number: [id number] No. of containers..02 Tissue . 01 Material submitted: . PART A: gastrointestinal site - ANTRUM PART B: esophagus, E-G Junction - GE JUNCTION . 01 Diagnosis: A. GASTRIC ANTRUM, BIOPSY: Gastric antral mucosa with no diagnostic abnormality. No evidence of Helicobacter organisms on H/E stain. Negative for intestinal metaplasia. Negative for dysplasia or malignancy. . B. GASTROESOPHAGEAL JUNCTION, BIOPSY: Proximal gastric-type mucosa with mild chronic inflammation. Negative for specialized intestinal metaplasia, dysplasia, or malignancy. MRV 10/28/2024 1357 Local . 01 Electronically signed: . Will Choudhury MD, PhD, Pathologist NPI- [id number] . 01 Gross description: . A. Received in formalin with two patient identifiers and 1. Antrum, is a single story soft tissue fragment, 0.5 cm in greatest dimension, submitted in A1. B. Received in formalin with two patient identifiers and 2. GE junction, is a single story soft tissue fragment, 0.6 cm in greatest dimension, submitted in B1. ([id number]) /MRV 10/27/2024 1710 Local . 01 Pathologist provided ICD-10: K20.80, R10.13 . 01 CPT . 324397, 156132 Specimen Comment: A courtesy copy of this report has been sent to [facility] Pathology Performed at: [address] [id number] MD Jake Lim MD Phone: [phone]
[2024-10-26 10:04] VITALS: BP 119/70; PULSE 82; RESP 16; TEMP 36.9; O2SAT 98
[2024-10-26] MEDS: LACTATED RINGERS 1,000 ML 42 ML IV (10:16)
--- NOTE | 2024-10-26 10:30 | PM.HP.IH.1 ---
History of Present Illness History of Present Illness Date Patient Seen: 10/26/24 Time Patient Seen: 10:31 Chief complaint: SDC Narrative: 68-year-old female with burning sensation in her stomach, and personal history of polyps last colonoscopy 5 years ago. She has not documented be on any proton pump inhibitors. [facility] Medical History (Updated 10/26/24 @ 10:32 by Kyle Cao MD) Personal history of colonic polyps History of gastric ulcer History of post-traumatic headache Cervical myelopathy with cervical radiculopathy Dry mucous membranes Hyperparathyroidism Serum calcium elevated Anxiety Atrophy of vagina Laceration, eyelid, left Headache History of traumatic head injury Vaginal irritation Colon polyp Surgical History Status post parathyroidectomy H/O cervical spine surgery Social History Smoking Status: Never smoker alcohol intake: current additional social history: alcohol: couple times per week tobacco: none, + second hand in the past PHQ9=7 SHANI= 4 12/2023 Meds Home Medications and Allergies Home Medications Medication Instructions Recorded Confirmed Type estradiol 0.01% (0.1 mg/gram) 0.25 appful vaginal DAILY continue 03/30/24 10/26/24 Rx vaginal cream your normal dose. #42.5 grams buspirone 10 mg tablet 5 mg (1/2 x 10 mg) PO BID PRN 07/09/24 10/26/24 Rx anxiety #30 tabs bupropion HCl 75 mg tablet 75 mg PO DAILY discussed dose with 08/24/24 10/26/24 Rx PCP. #30 tabs Allergies Allergy/AdvReac Type Severity Reaction Status Date / Time hydrocodone AdvReac Severe nightmares, Verified 10/26/24 09:59 panic Review of Systems Review of Systems ROS: Yes All systems reviewed with the patient and are negative except as otherwise documented Exam Vital Signs (past 8 hours): - 10/26/24 10:04 Temperature 98.4 F Pulse Rate 82 Respiratory Rate 16 Blood Pressure 119/70 Pulse Oximetry 98 Oxygen Delivery Method Room Air Oxygen Delivery Method Room Air Narrative Exam Narrative: Gen: NAD, sitting comfortably in bed, appears well HEENT: Sclera are anicteric, head is normocephalic and atraumatic, trachea is midline. CV: RRR, no JVD Resp: clear to auscultation bilaterally, equal chest wall movement bilaterally Abd: soft, nontender, normoactive bowel sounds Ext: no edema, full range of motion Neuro: Cranial nerves II-XII grossly intact, no focal deficits Skin: No erythema or ecchymosis Assessment & Plan Assessment and plan (1) History of gastric ulcer: Status: Acute (2) Personal history of colonic polyps: Status: Acute Assessment & Plan narrative: Patient presents for esophagogastroduodenoscopy and colonoscopy Risks, benefits, alternatives to colonoscopy explained, including but not limited to bowel perforation or other serious complication requiring surgery at less than 1 in 5000 EGD and colonoscopies, abdominal pain, cramping or bleeding and less than 1% of colonoscopies, and the chances that we find a diagnosis that would require further intervention of about 2%. Patient agrees to proceed. Time-Based Coding :: [TOTAL MINUTES] spent with patient and on the chart (including review of chart, obtaining history, exam, reviewing outside data, placing orders, documenting exam and treatment plan, and counseling patient) on [DATE]. PROFEE Rehabilitation Coordinator Document charge(s): No
[2024-10-26 10:58] VITALS: BP 83/49; PULSE 77; RESP 14; TEMP 36.2; O2SAT 99
--- NOTE | 2024-10-26 10:58 | PM.OP.EC ---
Operative Date/Time/Diagnoses Date of procedure: 10/26/24 Time of procedure: 10:58 Pre-op diagnosis: Gastritis history of ulcer, history of polyp Post-op diagnosis: same (1. Bile reflux gastritis 2. Normal colon) Procedure & Clinicians Study performed: Esophagogastroduodenoscopy with biopsy of the antrum and GE junction Colonoscopy Same procedure as scheduled: Yes Indications: History of ulcers, history of polyp Surgeon: Kyle Cao Procedure Notes SCOAP/Timeout: Performed Procedure in detail: Time-out was performed. Mac was induced. Patient was placed in left lateral decubitus position. Bite block was placed in the mouth. Gastroscope was inserted through the bite block to the 2nd portion of the duodenal. The stomach had a significant amount of bile refluxing from the duodenal. There was linear erosions in the antrum. Biopsies of the antrum were obtained with cold forceps. Retroflexed view did not show a significant hiatal hernia. GE junction was approximately 38 cm from the incisors. There was an irregular tongue of mucosa and biopsies were obtained of this with cold forceps. The perineum was inspected without any gross abnormality. Lubricated pediatric colonoscope was inserted and advanced to the cecum. The terminal ileum was intubated. The colonoscope was withdrawn slowly inspecting the circumference of the colon. Very small polyps may have been missed, prep quality was adequate. Retroflexed view of the rectum showed small, non prolapsed nonbleeding internal hemorrhoids. The scope was withdrawn the patient was taken to PACU in good condition. Scope withdrawal time: 6 Sedation minutes: 21 Findings: gastritis (Bile reflux) Post-procedure Recommendations: Colonscopy in 10 years, Reflux diet, EGD in 3 years and Start medication(s) (Proton pump inhibitor) Follow up: as needed Disposition: PACU
[2024-10-26 11:03] VITALS: BP 88/46; PULSE 3; RESP 16; O2SAT 98
[2024-10-26 11:09] VITALS: BP 93/56; PULSE 77; RESP 18; O2SAT 98
[2024-10-26 11:14] VITALS: BP 91/70; PULSE 76; RESP 12; O2SAT 98
[2024-10-26 11:16] VITALS: BP 103/50; PULSE 79; RESP 16; O2SAT 97
== END 2024-10-26 11:29 | disposition home or self-care (01) ==
PROVIDERS: Family Provider Physician Assistant; PCP Family Medicine; Referring Provider Surgery; Visit Provider Surgery
PROC: 0DJ08ZZ Inspection of Upper Intestinal Tract, Via Natural or Artificial Opening Endoscopic (ICD-10-PCS; CPT 43239; principal; 2024-10-26 10:45)
PROC: 0DJD8ZZ Inspection of Lower Intestinal Tract, Via Natural or Artificial Opening Endoscopic (ICD-10-PCS; CPT 45378; 2024-10-26 10:45)
DX: Z12.11 Encounter for screening for malignant neoplasm of colon (principal); Z86.0100 Personal history of colon polyps, unspecified; Z87.11 Personal history of peptic ulcer disease; K64.8 Other hemorrhoids; K29.50 Unspecified chronic gastritis without bleeding
CPT/HCPCS: 43239; G0105; J2704

== ENCOUNTER 2024-12-14 09:01 | Outpatient (CLI) | payer MEDICARE, OTHER, SELFPAY ==
[2024-12-14] VITALS (11 sets, daily range): BP systolic 102–120; BP diastolic 57–73; PULSE 56–86; RESP 14–18; TEMP 36.7; O2SAT 97–100
[2024-12-14] MEDS: MIDAZOLAM 2 MG/2 ML VIAL IV (10:21)
[2024-12-14] MEDS: BUPIVACAINE 0.25% (PF) VIAL 2 ML INJ (10:26)
[2024-12-14] MEDS: DEXAMETHASONE 10 MG/ML VIAL 20 MG INJ (10:26)
[2024-12-14] MEDS: iopamidoL 15 ML VIAL 3 ML INJ (10:26)
[2024-12-14] MEDS: DEXAMETHASONE 10 MG/ML VIAL INJ (10:27)
--- NOTE | 2024-12-14 10:45 | PM.PROC.IR.1 ---
Date/Time/Diagnoses Date of procedure: 12/14/24 Time of procedure: 10:45 Pre-procedure diagnosis: 1. CERVICAL STENOSIS, 2. CERVICAL HNP WITH UPPER EXTREMITY RADICULAR FEATURES Post-procedure diagnosis: same Procedure Notes Procedure: 1. FLUORSCOPICALLY GUIDED CONTRAST CONTROLLED INTERLAMINAR EPIDURAL STEROID INJECTION - C6/7 TL TAMARA Indications: Christy is referred by Dr. uA for treatment of Cervical HNP with Upper Extremity Paresthesias. Physician: Xavier Wiggins Total Fluoroscopy time (seconds): 41 Total sedation minutes: 20 Complications: none Procedure in detail & Post-procedure care: FINDINGS Cervical Stenosis due to disc deterioration and nerve root irritation and nerve root irritation DESCRIPTION OF PROCEDURE Fluoroscopically guided, contrast-controlled C6/7 translaminar epidural steroid injection with conscious sedation. Following review of allergy and review of potential side effects and complications, including, but not necessarily limited to, infection, allergic reaction, local tissue breakdown, temporary as well as permanent nerve injury, stroke, paralysis, and possible , the patient indicated that patient understood and agreed to proceed. An informed consent document was signed by the patient, witnessed by a nurse, and placed in the patient's chart. Additionally, other treatment options including modalities, medications, and physical therapy were reviewed with the patient. After review of previous anaesthesic history and IV conscious sedation the patient was deemed safe to proceed with today?s procedure with IV conscious sedation as ASA class II designation. Safety time-out was performed to confirm patient ID, procedure to be performed and site of procedure. IV sedation was accomplished with a combination of 2mg of Versed administered by the RN after DO order, titrated to patient comfort during the course of the procedure while the patient remained responsive to all verbal commands. In the prone position, following sterile prep and drape of the cervical region, the C6/7 translaminar space was identified fluoroscopically. The skin was anesthetized via a 25-gauge 1.5-inch needle with 1% lidocaine solution. At this point, a 25-gauge, 2.5-inch short bevel spinal needle was atraumatically introduced and advanced under fluoroscopic guidance into epidural space at the C6/7 translaminar space. Depth was confirmed on lateral view. Radiological data, including multiple fluoroscopic views of the cervical spine, reveal a spinal needle at the C6/7 translaminar space. Lateral views then show placement of the needle in the epidural space. Subsequent views show contrast material flowing superiorly and inferiorly in the epidural space. DSA fluoroscopy with live contrast injection, once again, confirmed no vascular or intrathecal uptake. At this point, using loss of resistance technique with saline and air, the epidural space was entered. Following negative aspiration, injection of approximately 1.5 cc of Isovue-200 with live fluoroscopy in the AP view confirmed epidural flow in the epidural space without vascular or intrathecal uptake observed. Subsequently, a test dose of 1 cc of 1% lidocaine solution was injected and patient was observed for two minutes without signs or symptoms of complications, including abdominal pain, shortness of breath, bilateral upper or lower extremity weakness, nausea and vomiting, prior to steroid injection. At this point, 3cc or 30mg of dexamethasone was then injected without incident. The patient tolerated the procedure well without signs or symptoms of complications prior to being transferred to the recovery area for further monitoring, The patient was then transferred to the recovery area where they were observed for an appropriate period of time after the injection. The patient reported a VAS score of 8 prior to the procedure and a post-procedure VAS of 1. POST OP INSTRUCTIONS The patient was provided a Pain Log to continue to record their response to the target-specific procedure prior to follow-up visit with the referring provider. Additionally, specific post-injection care instructions and a contact number to our office were provided if concerns arise regarding possible complications associated with the procedure are suspected.
--- NOTE | 2024-12-14 10:49 | PM.PROC.IR.1 ---
Date/Time/Diagnoses Date of procedure: 12/14/24 Time of procedure: 10:49 Pre-procedure diagnosis: 1. CERVICAL STENOSIS, 2. CERVICAL HNP WITH UPPER EXTREMITY RADICULAR FEATURES Post-procedure diagnosis: same Procedure Notes Procedure: 1. FLUORSCOPICALLY GUIDED CONTRAST CONTROLLED INTERLAMINAR EPIDURAL STEROID INJECTION - C6/7 TL TAMARA Indications: Christy is referred by Dr. Au for treatment of Cervical HNP with Upper Extremity Paresthesias. Physician: Xavier Wiggins Total Fluoroscopy time (seconds): 41 Total sedation minutes: 20 Complications: none Procedure in detail & Post-procedure care: FINDINGS Cervical Stenosis due to disc deterioration and nerve root irritation and nerve root irritation DESCRIPTION OF PROCEDURE Fluoroscopically guided, contrast-controlled C6/7 translaminar epidural steroid injection with conscious sedation. Following review of allergy and review of potential side effects and complications, including, but not necessarily limited to, infection, allergic reaction, local tissue breakdown, temporary as well as permanent nerve injury, stroke, paralysis, and possible , the patient indicated that patient understood and agreed to proceed. An informed consent document was signed by the patient, witnessed by a nurse, and placed in the patient's chart. Additionally, other treatment options including modalities, medications, and physical therapy were reviewed with the patient. After review of previous anaesthesic history and IV conscious sedation the patient was deemed safe to proceed with today?s procedure with IV conscious sedation as ASA class II designation. Safety time-out was performed to confirm patient ID, procedure to be performed and site of procedure. IV sedation was accomplished with a combination of 2mg of Versed administered by the RN after DO order, titrated to patient comfort during the course of the procedure while the patient remained responsive to all verbal commands. In the prone position, following sterile prep and drape of the cervical region, the C6/7 translaminar space was identified fluoroscopically. The skin was anesthetized via a 25-gauge 1.5-inch needle with 1% lidocaine solution. At this point, a 25-gauge, 2.5-inch short bevel spinal needle was atraumatically introduced and advanced under fluoroscopic guidance into epidural space at the C6/7 translaminar space. Depth was confirmed on lateral view. Radiological data, including multiple fluoroscopic views of the cervical spine, reveal a spinal needle at the C6/7 translaminar space. Lateral views then show placement of the needle in the epidural space. Subsequent views show contrast material flowing superiorly and inferiorly in the epidural space. DSA fluoroscopy with live contrast injection, once again, confirmed no vascular or intrathecal uptake. At this point, using loss of resistance technique with saline and air, the epidural space was entered. Following negative aspiration, injection of approximately 1.5 cc of Isovue-200 with live fluoroscopy in the AP view confirmed epidural flow in the epidural space without vascular or intrathecal uptake observed. Subsequently, a test dose of 1 cc of 1% lidocaine solution was injected and patient was observed for two minutes without signs or symptoms of complications, including abdominal pain, shortness of breath, bilateral upper or lower extremity weakness, nausea and vomiting, prior to steroid injection. At this point, 2cc or 20mg of dexamethasone was then injected without incident. The patient tolerated the procedure well without signs or symptoms of complications prior to being transferred to the recovery area for further monitoring, The patient was then transferred to the recovery area where they were observed for an appropriate period of time after the injection. The patient reported a VAS score of 8 prior to the procedure and a post-procedure VAS of 1. POST OP INSTRUCTIONS The patient was provided a Pain Log to continue to record their response to the target-specific procedure prior to follow-up visit with the referring provider. Additionally, specific post-injection care instructions and a contact number to our office were provided if concerns arise regarding possible complications associated with the procedure are suspected.
== END 2024-12-14 11:17 | disposition home or self-care (01) ==
PROVIDERS: Family Provider Physician Assistant; PCP Family Medicine; Referring Provider Physical Medicine & Rehabilitation; Visit Provider Physical Medicine & Rehabilitation
DX: M48.02 Spinal stenosis, cervical region (principal); M50.123 Cervical disc disorder at C6-C7 level with radiculopathy
CPT/HCPCS: 62321; 99152; J1100; J2250; J3490

== ENCOUNTER → 2025-08-08 12:01 | Outpatient (CLI) | payer MEDICARE, OTHER, SELFPAY ==
[2025-08-08 19:02] LABS: Hematocrit 42.3 % (36-46); Hemoglobin 14.3 g/dL (12.0-16.0); Mean Corpuscular HGB Conc 33.9 % (30-36); Mean Corpuscular Hemoglobin 32.6 PG (26-34); Mean Corpuscular Volume 96.1 fL (80-100); Platelet Count 267 X10^3/uL (150-400)
[2025-08-08 19:12] LABS: Alanine Aminotransferase 23 IU/L (<35); Albumin 4.9 g/dL (3.5-5.0); Albumin Globulin Ratio 1.9 (1.0-2.8); Alkaline Phosphatase 55 U/L (38-126); Blood Urea Nitrogen 10 mg/dL (7-17); Calcium 9.8 mg/dL (8.4-10.2); Carbon Dioxide 29 mmol/L (22-32); Chloride 101 mmol/L (98-107); Cholesterol 321 mg/dL (140-199); Estimated Glomerular Filt Rate > 60 mL/min (>60); Globulin 2.6 g/dL (1.7-4.1); Glucose 138 mg/dL (70-99); HEMOLYSIS < 15 (0-50); Potassium 4.4 mmol/L (3.4-5.1); Sodium 138 mmol/L (137-145); Total Protein 7.5 g/dL (6.3-8.2); Triglycerides 111 mg/dL (35-150)
[2025-08-08 19:28] LABS: Vitamin D 25 Hydroxy (D3) 61.6 ng/mL (30.0-100.0)
[2025-08-08 19:50] LABS: HDL Cholesterol 139 mg/dL (40-60)
== END ==
PROVIDERS: PCP Family Medicine; Visit Provider Family Medicine
DX: Z13.6 Encounter for screening for cardiovascular disorders (principal); E21.3 Hyperparathyroidism, unspecified; F41.9 Anxiety disorder, unspecified; K21.9 Gastro-esophageal reflux disease without esophagitis; M81.8 Other osteoporosis without current pathological fracture; E83.52 Hypercalcemia
CPT/HCPCS: 80053; 80061; 82306; 82310; 83970; 85027